=== PATIENT | male | born 1950 | race Caucasian/White ===

== ENCOUNTER 2017-04-08 08:01 | Emergency (ER) | payer OTHER ==
[2017-04-08 08:07] VITALS: BP 142/72
--- NOTE | 2017-05-10 07:49 | UC ---
Jonah Arreola Benjamin, scribed for Pam Wu DO on 04/08/17 at 0921 . General HPI - HPI Summary HPI Summary: 66yo male c/o sudden onset fatigue yesterday with diaphoresis, chills, and subjective fever. Pt hasnt taken his temperature but felt hot. Pt has been having similar episodes intermittently every few hours throughout yesterday and today. Pt is in outdoors a lot, and is frequently exposed to ticks. Pt admits having bitten by ticks a few places recently. Also reports increased frequency and urgency in urination lately. - History of Current Complaint Chief Complaint: UCGeneralIllness Stated Complaint: FEVER, CHILLS Time Seen by Provider: 04/08/17 09:08 Hx Obtained From: Patient Onset/Duration: Sudden Onset, Lasting Minutes, Still Present Timing: Intermittent Episodes Lasting: Onset Severity: Mild Current Severity: Mild Associated Signs & Symptoms: Positive: Diaphoresis, Fever, Other - body aches. Negative: Abdominal Pain, Back Pain, Cough, Chest Pain, Dizziness, Headache, Nausea, SOB, Vomiting - Allergy/Home Medications Allergies/Adverse Reactions: Allergies Allergy/AdvReac Type Severity Reaction Status Date / Time Penicillins [PCN] Allergy Hives Verified 04/08/17 08:07 Home Medications: Home Medications Albuterol HFA INHALER* [Ventolin HFA Inhaler*] 2 puff INH Q6HR PRN 04/08/17 [ History Confirmed 04/08/17] Black Pepper-Turmeric [Turmeric Curcumin Complex 500-3 mg] 1 cap PO DAILY [History Confirmed 04/08/17] Budesonide Flexhaler 180 (NF) [Pulmicort Flexhaler 180 mcg/act (NF)] 1 puff INH BID 04/08/17 [History Confirmed 04/08/17] Cholecalciferol [Vitamin D3] 4,000 unit PO DAILY 04/08/17 [History Confirmed 06/17] Cromolyn Sodium (Nasal) [Nasalcrom] 2 spray BOTH NARES BID 04/08/17 [History Confirmed 04/08/17] Ibuprofen TAB* [Advil TAB*] 400 mg PO TID PRN 04/08/17 [History Confirmed ] Levothyroxine TAB* [Synthroid 25 MCG TAB*] 25 mcg PO DAILY 04/08/17 [History Confirmed 04/08/17] Milk Thistle (Silybum Marianum [Milk Thistle] 200 mg PO DAILY 04/08/17 [History Confirmed 04/08/17] Montelukast Sodium TAB* [Singulair 10 MG TAB*] 10 mg PO DAILY 04/08/17 [History Confirmed 04/08/17] Multivitamins/Minerals TAB* [Thera M Plus TAB*] 2 tab PO DAILY 04/08/17 [ History Confirmed 04/08/17] [place]-3 Fatty Acids [Fish Oil] 2,000 mg PO DAILY 04/08/17 [History Confirmed 06/17] Sildenafil Citrate [Viagra] 100 mg PO DAILY PRN 04/08/17 [History Confirmed 06/17] PMH/Surg Hx/FS Hx/Imm Hx Respiratory History: Asthma - Surgical History Surgical History: None - Family History Known Family History: Negative: Cardiac Disease, Hypertension, Diabetes - Social History Occupation: Employed Full-time Lives: With Family Alcohol Use: Daily Substance Use Type: None Smoking Status (MU): Never Smoked Tobacco Review of Systems Constitutional: Fever, Chills, Fatigue, Other - diaphoresis Skin: Negative Eyes: Negative ENT: Negative Respiratory: Negative Cardiovascular: Negative Gastrointestinal: Negative Genitourinary: Frequency - increased, Urgency - increased Motor: Negative Neurovascular: Negative Musculoskeletal: Negative Neurological: Negative Psychological: Negative All Other Systems Reviewed And Are Negative: Yes Physical Exam Triage Information Reviewed: Yes Appearance: Well-Appearing, No Pain Distress, Well-Nourished Vital Signs: Initial Vital Signs Temp 96.3 F 04/08/17 08:04 Pulse 95 04/08/17 08:04 Resp 16 04/08/17 08:04 BP 142/72 04/08/17 08:04 Pulse Ox 97 04/08/17 08:04 Vital Signs Reviewed: Yes Eyes: Positive: Conjunctiva Clear. Negative: Discharge ENT: Positive: Normal ENT inspection. Negative: Muffled/hoarse voice Neck exam: Normal Neck: Positive: Supple Respiratory: Positive: Lungs clear, Normal breath sounds, No respiratory distress, No accessory muscle use Cardiovascular: Positive: RRR, No Murmur Musculoskeletal Exam: Normal Musculoskeletal: Positive: Strength Intact Neurological: Positive: Alert, Muscle Tone Normal Psychological: Positive: Age Appropriate Behavior Skin: Positive: Other - warmed, flushed, diaphoretic. Course/Dx - Course Course Of Treatment: UA: trace-lysed blood and leukocyte esterase positive, otherwise normal urine. - Differential Dx - Multi-Symptom Provider Diagnoses: Elevated blood pressure. uti. hematuria. Discharge - Discharge Plan Condition: Stable Disposition: HOME Prescriptions: Ciprofloxacin HCl [Cipro] 500 mg PO BID #14 tab Patient Education Materials: Urinary Tract Infection in Men (ED), Hematuria (ED ) Referrals: Marino Ladd MD [Primary Care Provider] - (FOLLOW UP NEXT WEEK PLANNED) Additional Instructions: CIPROFLOXACIN: You have been given a new antibacterial agent, ciprofloxacin (Cipro). This medicine is not related to the penicillins, sulfas, cephalosporins, or tetracyclines. It is often given to patients who are allergic to these drugs. It has been chosen for you either because other drugs are not appropriate, or because of the nature of your problem. Cipro should not be taken with antacids, as these can decrease its effectiveness. It can be taken without regard to meals. CIPRO SHOULD NOT BE TAKEN BY CHILDREN, NURSING WOMEN, OR WOMEN. Although Cipro is usually well-tolerated, common side effects can include nausea and diarrhea. Contact your doctor if you experience any unusual symptoms while on this medication, such as joint pain or swelling, shortness of breath, wheezing, faintness, or hives. ANYTIME YOU TAKE AN ANTIBIOTIC, IT IS IMPORTANT TO REPLENISH THE BODY'D SUPPLY OF "GOOD BACTERIA." YOU CAN GET GOOD BACTERIA FROM HIGH QUALITY CULTURED FOODS SUCH LOCAL YOGURT, SOUR KRAUT, MARE LUIS, NATURALLY FERMENTED PICKLES AND PROBIOTIC DRINKS. YOU CAN ALSO GET GOOD BACTERIA FROM A PROBIOTIC SUPPLEMENT. The documentation as recorded by the Jonah mathias Benjamin accurately reflects the service I personally performed and the decisions made by me, Pam Wu DO.
== END 2017-04-08 09:57 | disposition home or self-care (01) ==
LOC: UCEAST 08:01
DX: N39.0 Urinary tract infection, site not specified (principal); R31.9 Hematuria, unspecified; R03.0 Elevated blood-pressure reading, without diagnosis of hypertension; J45.909 Unspecified asthma, uncomplicated; Z88.0 Allergy status to penicillin
CPT/HCPCS: 81003; 87086; 99212; G0463

== ENCOUNTER 2017-12-06 07:47 | Emergency (ER) | payer OTHER ==
[2017-12-06 08:00] VITALS: BP 128/68
--- NOTE | 2017-12-06 08:17 | UC ---
Shortness of Breath HPI - HPI Summary HPI Summary: Patient presents to the ED with CC of SOB, cough, sputum production and chest congestion x 5 days. Prednisone without improvement. Hx of PNA and bronchitis and asthma. Ventolin without relief. He has been otherwise healthy and has not needed his ventolin daily. Sputum is green. Denies fevers, sweats or chills. Endorses fatigue. Denies body aches or sick contacts. - History of Current Complaint Chief Complaint: UCRespiratory Stated Complaint: URI Time Seen by Provider: 12/06/17 08:07 Hx Obtained From: Patient Onset/Duration: Gradual Onset Timing: Constant Current Severity: Mild Dyspnea At: Exertion Aggrevating Factors: Deep Breaths Associated Signs & Symptoms: Positive: Cough (Productive). Negative: Fever, Chills, Nasal Congestion, Calf Pain/Swelling, Edema - Risk Factors Pulmonary Embolism: Negative Cardiac: Negative Pseudomonas: Negative Tuberculosis: Negative - Allergy/Home Medications Allergies/Adverse Reactions: Allergies Allergy/AdvReac Type Severity Reaction Status Date / Time Penicillins Allergy Unknown Verified 12/06/17 08:09 Reaction Details Home Medications: Home Medications predniSONE TAB* [Deltasone TAB*] 40 mg PO DAILY 12/06/17 [History Confirmed 03/18] PMH/Surg Hx/FS Hx/Imm Hx Previously Healthy: Yes - Surgical History Surgical History: None - Family History Known Family History: Negative: Cardiac Disease, Hypertension, Diabetes - Social History Occupation: Employed Full-time Lives: With Family Alcohol Use: Daily Substance Use Type: None Smoking Status (MU): Never Smoked Tobacco Review of Systems Constitutional: Fatigue Skin: Negative ENT: Nasal Discharge Respiratory: Shortness Of Breath, Cough Cardiovascular: Negative Motor: Negative Neurovascular: Negative Musculoskeletal: Negative Neurological: Negative Is Patient Immunocompromised?: No All Other Systems Reviewed And Are Negative: Yes Physical Exam Triage Information Reviewed: Yes Appearance: Well-Appearing, Well-Nourished Vital Signs: Initial Vital Signs Temp 98.0 F 12/06/17 07:54 Pulse 88 12/06/17 07:54 Resp 14 12/06/17 07:54 BP 128/68 12/06/17 07:54 Pulse Ox 100 12/06/17 07:54 Vital Signs Reviewed: Yes Eye Exam: Normal Eyes: Positive: Conjunctiva Clear Neck exam: Normal Neck: Positive: Supple, No Lymphadenopathy Respiratory Exam: Normal Respiratory: Positive: Chest non-tender, Rhonchi Cardiovascular Exam: Normal Cardiovascular: Positive: RRR Musculoskeletal Exam: Normal Musculoskeletal: Positive: Strength Intact Neurological Exam: Normal Neurological: Positive: Alert Psychological: Positive: Normal Response To Family Skin Exam: Normal Shortness of Breath Dx - Course Course Of Treatment: During the course of treatment, the patient is evaluated for chest congestion and cough with sputum production worsening despite predisone treatment. Denies fevers. Chest xray obtained rhonchorous lung sounds throughout. Hx of PNA. Chest xray negative. He is given azithromycin, prednisone and robitussin with codeine for relief. He will follow up with his PCP - Differential Dx/Diagnosis Provider Diagnoses: Bronchitis Discharge - Discharge Plan Condition: Stable Disposition: HOME Prescriptions: Azithromycin TAB* [Zithromax TAB (Z-TERRENCE) 250 mg #6 tabs] 2 tab PO .TODAY, THEN 1 DAILY #1 terrence guaiFENesin/CODIEN 100MG-10MG* [Robitussin AC 100Mg-10Mg*] 10 ml PO Q4H PRN # 120 udc MDD 60 PRN Reason: Cough predniSONE TAB* [Deltasone TAB*] 50 mg PO DAILY #5 tab MDD 1 Patient Education Materials: Acute Bronchitis (ED) Referrals: Marino Ladd MD [Primary Care Provider] - Additional Instructions: Follow up as needed Robitussin with codeine for severe cough Prednisone daily for 5 days
--- NOTE | 2017-12-06 09:08 | RAD ---
INDICATION: Congestion, cough and shortness of breath. COMPARISON: Comparison is made with prior study from March 15, 2009. TECHNIQUE: Dual-energy PA and lateral views of the chest were obtained. FINDINGS: The heart is within normal limits in size. Mediastinal and hilar contours appear within normal limits. The lungs are clear. No pleural effusion is present. IMPRESSION: NO EVIDENCE FOR ACTIVE CARDIOPULMONARY DISEASE.
== END 2017-12-06 09:25 | disposition home or self-care (01) ==
LOC: UCEAST 07:47
DX: J40 Bronchitis, not specified as acute or chronic (principal); Z88.0 Allergy status to penicillin
CPT/HCPCS: 71046; 99212; G0463